=== PATIENT | male | born 1950 | race Caucasian/White ===

== ENCOUNTER → 2019-05-20 07:04 | Day surgery (SDC) | payer MEDICARE, OTHER ==
[~2019-05-20 07:04] MED LIST: Acetaminophen IV 1GM/100ML * 1,000 MG/100 ML VIAL IVPB ONE; Acetaminophen IV 1GM/100ML * 100 ML ONE; Buffered Lidocaine 1% SYRIN* 1 ML/SYRINGE INTRADERM ONE; Bupivacaine 0.25% EPI 200,000* 30 ML SDV ONE; Lactated Ringers 1000 ML Bag* 1,000 ML IV SCH; Lidocaine 2% PF * 5 ML VIAL ONE; Naloxone* 0.4 MG/ML 1 ML VIAL IV PRN; Ondansetron INJ* 2 MG/ML VIAL IV PRN; Propofol* 10 MG/ML 20 ML BTL ONE; Rocuronium* 10 MG/ML VIAL ONE; Sodium Citrate/Citric Acid* 15 ML UDC ONE; Sodium Citrate/Citric Acid* 15 ML UDC PO ONE; ceFAZolin 2 GM in NS PREMIX(*) 2 GM/100 ML BAG IVPB ONE; fentaNYL* 50 MCG/ML 2 ML VIAL (100 MCG VIAL) IV PRN; fentaNYL* 50 MCG/ML 2 ML VIAL (100 MCG VIAL) ONE
[2019-05-20 09:48] LABS: Hepatitis C Antibody Negative (Negative)
--- NOTE | 2019-05-20 11:10 | BRIEFOPN ---
Brief Operative/Procedure Note - Operation Details Pre-Op Diagnosis: Right inguinal hernia Post-Op Diagnosis: Right inguinal hernia Procedures: Robotic right inguinal hernia repair with mesh Surgeon(s)/Proceduralists: Dr. Duran Anesthesia: GETA Estimated Blood Loss: <50cc Findings: As above Specimen(s)/Culture(s) Description: None Complications: None
[2019-05-20 13:13] VITALS: BP 99/62
--- NOTE | 2019-05-21 06:06 | OP ---
CC: Nir Mckenna MD * DATE OF OPERATION: 05/20/19 - [facility] DATE OF : 52 SURGEON: See Duran MD DEBRANDER: AUBREY Ortiz. ANESTHESIOLOGIST: Agus Pang DO ANESTHESIA: General endotracheal. PRE-OP DIAGNOSIS: Right inguinal hernia. POST-OP DIAGNOSIS: Right inguinal hernia. OPERATIVE PROCEDURE: Laparoscopic transabdominal preperitoneal repair of right inguinal hernia using da Bev. ESTIMATED BLOOD LOSS: Minimal. IV FLUIDS: Crystalloid. SPECIMEN: None. DRAINS: None. COMPLICATIONS: None. COUNTS: The instrument, needle, and sponge counts were correct. FINDINGS: Right inguinal hernia , indirect. DESCRIPTION OF PROCEDURE: The patient was brought to the operating room and placed on the table supine. Sequential compression devices were placed in both lower extremities and general anesthesia was administered. He was positioned and padded appropriately. He received appropriate intravenous antibiotics. He was prepped and draped in the usual sterile fashion, and a time-out was performed. Local anesthetic was infiltrated into the skin and soft tissue prior to making each incision. Pneumoperitoneum was achieved through transumbilical placement of a Veress needle. Carbon dioxide was insufflated to a pressure of 12 mmHg. An 8 mm trocar was placed in the left upper quadrant and this was an optical trocar. After accessing the peritoneal cavity, additional 8 mm trocars were placed, 1 in the supraumbilical region, 1 in the right upper quadrant. Robot was docked in a standard fashion. The peritoneal flap was raised starting at 8 cm cephalad to the ilioinguinal ligament. The preperitoneal space was developed from medial to laterally identifying the pubic symphysis, Varun's ligament, and the inferior epigastric vessels and preserving these. A indirect inguinal hernia sac was identified and completely reduced preserving the spermatic cord structures. The dissection proceeded out laterally to the anterior superior iliac spine. The [employer]tronic laparoscopic ProGrip mesh size 10 x 15 cm was then positioned to cover direct, indirect, and femoral spaces. The peritoneal flap was then sewn closed with a 3-0 V-Loc 90 suture in a running fashion. There was a rent in the peritoneum inferior to this, which was also closed with a V-Loc 90 suture in a running fashion. Lastly, a 3-0 Vicryl suture was used to close the small rent in the peritoneal flap and to tack up the hernia sac in the cephalad direction. At this point, the operation was concluded. The ports were removed. Carbon dioxide was released. Skin incisions were closed with 4-0 Monocryl in subcuticular fashion and a DermaFlex was applied. The patient tolerated the procedure well, was extubated uneventfully, and transferred to the recovery room in stable condition. [id number]/[facility] #: [id number] [facility]
== END | disposition home or self-care (01) ==
LOC: OR 07:04
PROVIDERS: ATTEND Surgery
DX: K40.90 Unilateral inguinal hernia, without obstruction or gangrene, not specified as recurrent (principal); G47.33 Obstructive sleep apnea (adult) (pediatric); R09.02 Hypoxemia; L40.9 Psoriasis, unspecified; I10 Essential (primary) hypertension; R01.1 Cardiac murmur, unspecified; E78.00 Pure hypercholesterolemia, unspecified; I34.1 Nonrheumatic mitral (valve) prolapse
CPT/HCPCS: 49650; S2900; 36415; 86803; A9270-GY; C1781; J0690; J2704; J3010

== ENCOUNTER 2019-06-04 12:18 | Day surgery (SDC) | payer MEDICARE ==
[~2019-06-04 12:18] MED LIST changes: -Acetaminophen IV 1GM/100ML * 1,000 MG/100 ML VIAL IVPB ONE; -Acetaminophen IV 1GM/100ML * 100 ML ONE; +Acetaminophen TAB* 325 MG PO PRN; -Bupivacaine 0.25% EPI 200,000* 30 ML SDV ONE; -Lactated Ringers 1000 ML Bag* 1,000 ML IV SCH; -Lidocaine 2% PF * 5 ML VIAL ONE; -Naloxone* 0.4 MG/ML 1 ML VIAL IV PRN; -Ondansetron INJ* 2 MG/ML VIAL IV PRN; -Propofol* 10 MG/ML 20 ML BTL ONE; -Rocuronium* 10 MG/ML VIAL ONE; -Sodium Citrate/Citric Acid* 15 ML UDC ONE; -Sodium Citrate/Citric Acid* 15 ML UDC PO ONE; -ceFAZolin 2 GM in NS PREMIX(*) 2 GM/100 ML BAG IVPB ONE; -fentaNYL* 50 MCG/ML 2 ML VIAL (100 MCG VIAL) IV PRN; -fentaNYL* 50 MCG/ML 2 ML VIAL (100 MCG VIAL) ONE
[2019-06-04] MEDS ORDERED: fentaNYL* 50 MCG/ML 2 ML VIAL (100 MCG VIAL) ONE (14:28)
[2019-06-04] MEDS ORDERED: Midazolam* 1 MG/ML 5 ML VIAL (5 MG) ONE (14:28)
[2019-06-04] MEDS ORDERED: Lidocaine 2% w/ EPI 1:200,000* 20 ML SDV VIAL ONE (15:02)
[2019-06-04] MEDS ORDERED: Phenylephrine OPHTH SOL 2.5%* 2 ML ONE (15:02)
[2019-06-04] MEDS ORDERED: Proparacaine 0.5% OPHTH.SOL* 15 ML BTL ONE (15:02)
[2019-06-04] MEDS ORDERED: Povidone Iodine 5% OPTH* 30 ML BTL ONE (15:02)
[2019-06-04] MEDS ORDERED: Cyclopentolate 1% OPTH.SOL* 2 ML BTL ONE (15:02)
[2019-06-04] MEDS ORDERED: Lidocaine 1% MPF ** 5 ML VIAL ONE (15:02)
[2019-06-04] MEDS ORDERED: Ketorolac 0.5% OPHTH (NF) 0.5 % 5 ML BTL ONE (15:02)
[2019-06-04] MEDS ORDERED: Neomycin/Polymy/Dex OPTH.SUSP* MAXITROL 0.1% 5 ML ONE (15:02)
[2019-06-04] MEDS ORDERED: acetaZOLAMIDE TAB* 250 MG ONE (15:02)
[2019-06-04 15:27] VITALS: BP 135/84
--- NOTE | 2019-06-04 23:09 | OP ---
DATE OF OPERATION: 06/04/19 [facility] DATE OF : 52 SURGEON: Nir Triplett M.D. PREOPERATIVE DIAGNOSIS: Cataract, right. POSTOPERATIVE DIAGNOSIS: Cataract, right. OPERATIVE PROCEDURE: Extracapsular cataract extraction with intraocular lens implant, right eye. DESCRIPTION OF PROCEDURE: The patient was brought to the operating room after being given 1/2% Alcaine with epinephrine drops in the preoperative area. The eye was prepped and draped in the usual sterile fashion. Sterile drape and eyelid speculum were placed. Again, topical 1/2% Alcaine with epinephrine was given. A paracentesis incision was made at the 9 o'clock position with the No.75 blade. Clear cornea incision 2.2 x 2.2-mm was created at the 12 o'clock position starting at the anterior limbus using the 2.2-mm keratome. The anterior chamber was irrigated with 0.4 mL of 1% non-preservative intracameral lidocaine and filled with DisCoVisc. A capsulorrhexis was completed using the cystotome and the Utrata forceps. Hydrodissection was performed with balanced salt solution. The lens nucleus was removed with the Phacoemulsification handpiece without incident. Cortex was removed with the irrigation-aspiration handpiece. The capsular bag was re-inflated using DisCoVisc and an [id number] implant was inserted with the shooter. The irrigation-aspiration handpiece was used to remove all residual DisCoVisc. The eye was refilled with balanced salt solution and the wound checked and found to be watertight. Topical Maxitrol drops were given. [id number]/[facility] #: [id number] [facility]
== END 2019-06-04 15:22 | disposition home or self-care (01) ==
LOC: OREAST 12:18
PROVIDERS: ATTEND Specialist
DX: H25.811 Combined forms of age-related cataract, right eye (principal); H43.813 Vitreous degeneration, bilateral; I10 Essential (primary) hypertension; L40.8 Other psoriasis; M19.90 Unspecified osteoarthritis, unspecified site; G47.30 Sleep apnea, unspecified
CPT/HCPCS: A9270-GY; J2250; J3010; V2632

== ENCOUNTER 2019-06-11 07:53 | Day surgery (SDC) | payer MEDICARE ==
[2019-06-11] MEDS ORDERED: Midazolam* 1 MG/ML 5 ML VIAL (5 MG) ONE (09:25)
[2019-06-11] MEDS ORDERED: fentaNYL* 50 MCG/ML 2 ML VIAL (100 MCG VIAL) ONE (09:25)
[2019-06-11 10:47] VITALS: BP 115/65
[2019-06-11] MEDS ORDERED: acetaZOLAMIDE TAB* 250 MG ONE (13:56)
[2019-06-11] MEDS ORDERED: Cyclopentolate 1% OPTH.SOL* 2 ML BTL ONE (13:56)
[2019-06-11] MEDS ORDERED: Neomycin/Polymy/Dex OPTH.SUSP* MAXITROL 0.1% 5 ML ONE (13:56)
[2019-06-11] MEDS ORDERED: Lidocaine 1% MPF ** 5 ML VIAL ONE (13:56)
[2019-06-11] MEDS ORDERED: Lidocaine 2% w/ EPI 1:200,000* 20 ML SDV VIAL ONE (13:56)
[2019-06-11] MEDS ORDERED: Ketorolac 0.5% OPHTH (NF) 0.5 % 5 ML BTL ONE (13:57)
[2019-06-11] MEDS ORDERED: Povidone Iodine 5% OPTH* 30 ML BTL ONE (13:57)
[2019-06-11] MEDS ORDERED: Phenylephrine OPHTH SOL 2.5%* 2 ML ONE (13:57)
[2019-06-11] MEDS ORDERED: Proparacaine 0.5% OPHTH.SOL* 15 ML BTL ONE (13:57)
--- NOTE | 2019-06-11 15:39 | OP ---
OPERATIVE NOTE: DATE OF OPERATION: 06/11/19 DATE OF : 52 SURGEON: Nir Triplett MD. PREOPERATIVE DIAGNOSIS: Cataract, left eye. POSTOPERATIVE DIAGNOSIS: Cataract, left eye. OPERATIVE PROCEDURE: Extracapsular cataract extraction with intraocular lens implant, left eye. PROCEDURE: The patient was brought to the operating room after being given 1/2% Alcaine with epineph rine drops in the preoperative area. The eye was prepped and draped in the usual sterile fashion. S terile drape and eyelid speculum were placed. Again, topical 1/2% Alcaine with epinephrine was given . A paracentesis incision was made at the 3 o'clock position with the No.75 blade. Clear cornea inc ision 2.2 x 2.2-mm was created at the 6 o'clock position starting at the anterior limbus using the 2. 2-mm keratome. The anterior chamber was irrigated with 0.4 mL of 1% non-preservative intracameral li docaine and filled with DisCoVisc. A capsulorrhexis was completed using the cystotome and the Utrata forceps. Hydrodissection was performed with balanced salt solution. The lens nucleus was removed wi th the Phacoemulsification handpiece without incident. Cortex was removed with the irrigation-aspira tion handpiece. The capsular bag was re-inflated using DisCoVisc and an [id number] implant was insert ed with the shooter. The irrigation-aspiration handpiece was used to remove all residual DisCoVisc. The eye was refilled with balanced salt solution and the wound checked and found to be watertight. Topical Maxitrol drops were given. [id number]/[facility] #: [id number]
== END 2019-06-11 10:55 | disposition home or self-care (01) ==
LOC: OREAST 07:53
PROVIDERS: ATTEND Specialist
DX: H25.812 Combined forms of age-related cataract, left eye (principal); H43.813 Vitreous degeneration, bilateral; M19.90 Unspecified osteoarthritis, unspecified site; L40.8 Other psoriasis; I10 Essential (primary) hypertension; I34.1 Nonrheumatic mitral (valve) prolapse; G47.33 Obstructive sleep apnea (adult) (pediatric)
CPT/HCPCS: A9270-GY; J2250; J3010; V2632